=== PATIENT | male | born 2000 | race Caucasian/White ===

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

== ENCOUNTER → 2021-03-13 | Outpatient (CLI) | payer OTHER | LOC: COL.RAD 12:56 | DX: S73.102A Unspecified sprain of left hip, initial encounter (principal) | CPT/HCPCS: A9585; J3301; Q9967 ==